=== PATIENT | female | born 2000 | race Caucasian/White ===

== ENCOUNTER → 2019-09-25 11:19 | Outpatient (CLI) | payer BC, SELFPAY ==
[2019-09-25 12:26] LABS: Basophils % 0.6 % (0.1-2.0); Eosinophils % 1.2 % (0.1-12.0); Hematocrit 36.8 % (37.0-47.0); Hemoglobin 12.2 g/dL (12.2-16.2); Lymphocytes # 1.4 K/mm3 (0.7-4.5); Lymphocytes % 40.9 % (10-50); Mean Corpuscular HGB Conc 33.1 g/dL (31.8-35.4); Mean Corpuscular Hemoglobin 28.8 pg (27.0-31.2); Mean Corpuscular Volume 86.8 fl (81-99); Mean Platelet Volume 8.9 fl (7.4-10.4); Monocytes # 0.2 K/mm3 (0.1-1.0); Neutrophils # 1.7 K/mm3 (1.8-7.8); Neutrophils % 51.3 % (37.0-80.0); Platelet Count 229 K/mm3 (142-424); Red Blood Count 4.24 M/mm3 (4.20-5.40); Red Cell Distribution Width 12.9 % (11.5-17.5); White Blood Count 3.4 K/mm3 (4.5-13.0)
[2019-09-25 13:51] LABS: Alanine Aminotransferase 28 U/L (12-78); Albumin Level 3.9 gm/dL (3.4-5.0); Albumin/Globulin Ratio 1.3 (1.1-1.8); Alkaline Phosphatase 50 U/L (46-116); Anion Gap 10.4 mEq/L (5-15); Aspartate Amino Transferase 19 U/L (15-37); Bilirubin,Total 0.3 mg/dL (0.2-1.0); Blood Urea Nitrogen 7 mg/dL (7-18); Calcium 8.7 mg/dL (8.5-10.1); Carbon Dioxide 28 mmol/L (21.0-32.0); Chloride 106 mmol/L (98-107); Creatinine,Serum 0.79 mg/dL (0.55-1.02); Estimated Glomerular Filt Rate 93 ml/min (>60); GFR (African American) 112 ML/MIN (>60); Globulin 2.9 gm/dl (1.3-3.2); Glucose 81 mg/dL (74-106); Potassium 4.4 mmoL/L (3.5-5.1); Sodium 140 mmol/L (136-145); Total Protein,Serum 6.8 gm/dL (6.4-8.2)
[2019-09-26 09:13] LABS: Iron 46 ug/dL (27-159); UIBC 265 ug/dL (131-425)
[2019-09-26 19:04] LABS: Iron Saturation 15 % (15-55)
[2019-09-26 19:06] LABS: Vitamin B12 393 pg/mL (232-1245); Vitamin D 25 Hydroxy 31.7 ng/mL (30.0-100.0)
== END ==
PROVIDERS: Visit Provider Nurse Practitioner Psychiatric/Mental Health
DX: Z00.00 Encounter for general adult medical examination without abnormal findings (principal); F31.81 Bipolar II disorder; Z79.899 Other long term (current) drug therapy
CPT/HCPCS: 36415; 80053; 82607; 82652; 83540; 83550; 84443; 85025

== ENCOUNTER 2023-03-03 15:37 | Emergency (ER) | payer BC, SELFPAY ==
[2023-03-03 15:38] VITALS: BP 145/93; PULSE 69; RESP 16; TEMP 36.7; O2SAT 97; BMI 25.8
[2023-03-03 16:00] VITALS: BP 135/79; PULSE 64; RESP 18; O2SAT 98
--- NOTE | 2023-03-03 16:03 | [facility].EDGENADL ---
Discharge Plan Disposition Patient Disposition: Home, Self-Care Condition: Good Prescriptions Prescriptions: No Action Vraylar 1.5 mg capsule 1.5 mg PO DAILY Qty: 30 0RF escitalopram oxalate [Lexapro] 20 mg tablet 20 mg PO DAILY Qty: 30 0RF cefuroxime axetil 250 MG tablet 250 mg PO BID 10 Days Qty: 20 0RF Referrals Follow up/Referrals: Jovon Monreal MD [Primary Care Provider] - See instructions Activity Restrictions/Add. Instructions Additional Instructions/Restrictions: You have been evaluated for a laceration to the left hand. Laceration has been repaired with sutures. Sutures are absorbable. It is important that you keep the wound clean and dry for 24 hours. Okay to shower normally after that. Follow-up with your primary care doctor for wound check in 5 to 7 days. Any remaining sutures need to be removed at that time. Return to the emergency department at once for any new or worsening symptoms, redness, wound drainage, other concerns Clinical Impressions Clinical Impression: Hand laceration Instructions Patient Instructions: DI for Laceration Repair Discharge ED Provider: Nesha Lopez Adult HPI General Chief complaint: Wound/Laceration Stated complaint: AO, left hand laceration 03/03 Time Seen by Provider: 03/03/23 15:41 Mode of Arrival: Ambulatory Source of Information: Patient Limitations: No Limitations Description of Symptoms (Recalled from ER Triage Doc. by RN): pt to the ED with a laceration to her left palm near her thumb. pt reported she was trying to open a can of paint when the took she was using slipped and hit her left hand. bleeding is controlled at this time. History of Present Illness HPI narrative: 22-year-old female presenting to the emergency department with a laceration to her left hand. Incident happened just prior to arrival. She was trying to open a can of paint with a tool when the tool slipped. She sustained a laceration in the webspace between her thumb and index finger on the left hand. When she moves her thumb, the laceration will gape open. She denies any numbness, weakness, tingling in her thumb or index finger. She is able to flex and extend the thumb and index finger without difficulty. Unsure of her most recent tetanus immunization. No medications prior to arrival. Related Data Previous Rx's Medication Instructions Recorded cefuroxime axetil 250 mg tablet 250 mg PO BID 10 days #20 tabs 03/16/19 cariprazine 1.5 mg capsule 1.5 mg PO DAILY #30 caps 04/08/20 (Vraylar) escitalopram oxalate 20 mg tablet 20 mg PO DAILY #30 tabs 04/08/20 (Lexapro) Allergies Allergy/AdvReac Type Severity Reaction Status Date / Time amoxicillin [AMOXICILLIN] Allergy Mild Verified 09/25/19 10:46 [facility] Disclaimer: The information contained in this section may have been updated after the patient was seen, as this information can be updated by other users. Social History Smoking Status: Never smoker alcohol intake: current current occupational status: student and other Travel in the last 8 weeks: None number of children: 0 ROS Obtained: Yes All systems reviewed & no additional complaints except as documented Constitutional Constitutional: Denies fever(s) and Denies headache(s) ENT Ears, Nose, Mouth, and Throat: Denies headache(s) Gastrointestinal Gastrointestingal: Denies nausea or vomiting Musculoskeletal Musculoskeletal: Denies arthralgias, Denies joint swelling, Denies muscle weakness, Denies numbness and Denies stiffness Integumentary/Breasts Skin/Breast: Reports sores and Reports wounds Neurologic Neurologic: Denies headache(s) and Denies numbness Physical Exam General General appearance: alert and in no apparent distress Head Head exam: atraumatic and normocephalic Respiratory Respiratory exam: Present normal lung sounds bilaterally Cardiovascular Cardiovascular exam: Present regular rate and normal rhythm Extremities E
--- NOTE | 2023-03-03 16:31 | PC.NURSE ---
ASSISTED PT. TO BATHROOM, URINE OBTAINED AND SENT TO LAB. SISTER AT BEDSIDE. NO NEEDS AT THIS TIME
[2023-03-03 16:48] VITALS: BP 128/83; PULSE 81; RESP 16; TEMP 37; O2SAT 98
== END 2023-03-03 16:55 | disposition home or self-care (01) ==
LOC: ER 16:16
PROVIDERS: Emergency Provider Emergency Medicine; PCP Family Medicine
DX: S61.412A Laceration without foreign body of left hand, initial encounter (principal); W26.8XXA Contact with other sharp object(s), not elsewhere classified, initial encounter; Z23 Encounter for immunization
CPT/HCPCS: 12001; 96372; 99283; 99284